=== PATIENT | female | born 1940 | race Caucasian/White ===

== ENCOUNTER 2021-08-22 12:08 | Inpatient (IN) | payer MEDICARE, MEDICAID ==
[~2021-08-22] VITALS: Ht 147.3 cm; Wt 63.6 kg
[~2021-08-22 12:08] MED LIST: AMLO5TAB16 PO; ATOR40TA PO; BISM-51 PO; CHOL200052 PO; LOPE-190 PO; METO5TAB98 PO; ONDA4TAB6 PO; PANT-47 PO; SITA50TA PO; atropine 0.1mg/ml 10ml syringe ONE; calcium chloride 100 MG/1 ML inj IV ONE; diphenhydrAMINE 50 mg/ml inj ONE; epiNEPHrine 0.1mg/ml 10ml syringe ONE; etomidate 2mg/ml inj. ONE; rocuronium 10mg/ml inj IV ONE; sodium bicarbonate (8.4%) 1 mEq/ml syringe ONE
[2021-08-22 13:30] LABS: BASOPHILS % (AUTO) 0.2 % (0-1); EOSINOPHILS % (AUTO) 0.2 % (0-6); HEMATOCRIT 37.6 % (35.0-45.0); HEMOGLOBIN 12.4 g/dl (12.0-16.0); LYMPHOCYTES # (AUTO) 0.6 X10'3 (1.1-4.8); MEAN CORPUSCULAR HEMOGLOBIN 30.6 PG (27.0-31.0); MEAN CORPUSCULAR VOLUME 92.9 FL (78-98); MEAN PLATELET VOLUME 8.9 FL (7.4-10.4); MONOCYTES # (AUTO) 0.2 X10'3 (0-0.9); MONOCYTES % (AUTO) 2.8 % (2-12); NEUTROPHILS # (AUTO) 6.3 X10'3 (1.8-7.7); NEUTROPHILS % (AUTO) 87.8 % (42-75); PLATELET COUNT 214 X10'3 (140-440); RED BLOOD COUNT 4.05 X10'6 (4.20-5.60); WHITE BLOOD COUNT 7.2 X10'3 (4.5-11.0)
[2021-08-22 13:37] LABS: APTT 25 SECONDS (22-32)
[2021-08-22 13:59] LABS: GLUCOSE 129 MG/DL (70-104); POTASSIUM 4.3 MMOL/L (3.5-5.1); SODIUM 140 MMOL/L (135-145)
[2021-08-22 14:00] LABS: ALANINE AMINOTRANSFERASE 18 U/L (12-78); ALBUMIN 3.4 G/DL (3.4-5.0); ALBUMIN/GLOBULIN RATIO 0.8 (1.1-1.5); ALKALINE PHOSPHATASE 77 IU/L (46-116); ANION GAP 9 (8-16); ASPARTATE AMINO TRANSFERASE 14 U/L (10-37); BILIRUBIN,TOTAL 0.3 MG/DL (0.1-1.0); BLOOD UREA NITROGEN 32 MG/DL (7-18); BUN/CREATININE RATIO 19.5 (6.6-38.0); CALCIUM 9.2 MG/DL (8.5-10.1); CHLORIDE 104 MMOL/L (99-107); CREATININE 1.64 MG/DL (0.40-0.90); TOTAL CARBON DIOXIDE 26.9 MMOL/L (24-32); TOTAL PROTEIN 7.5 G/DL (6.4-8.2); eGFR 30 ML/MIN
[2021-08-22] MEDS ORDERED: heparin 10,000 units/1 ML INJ IV PRN ×2 (14:25→14:50)
[2021-08-22] MEDS ORDERED: heparin 25,000 UNIT/250ml bag 250 ML IV SCH (14:25)
[2021-08-22] MEDS ORDERED: ondansetron/PF 4mg/2ml inj IV ONE (14:50)
[2021-08-22] MEDS ORDERED: morphine 2 MG/ML inj. syringe IV ONE (14:50)
[2021-08-22] MEDS ORDERED: heparin 10,000 units/1 ML INJ IV ONE (14:50)
[2021-08-22] MEDS ORDERED: normal saline 1000ml 1,000 ML IV ONE (14:50)
[2021-08-22] MEDS ORDERED: normal saline 1000ML IV soln IVB ONE (14:50)
[2021-08-22] MEDS: heparin 25,000 UNIT/250ml bag 250 ML IV SCH (15:03)
[2021-08-22] MEDS ORDERED: morphine 4 MG/ML inj SYRINge IV PRN ×2 (15:10→20:50)
[2021-08-22] MEDS ORDERED: magnesium hydroxide 30ml (MOM) UD suspension PO PRN (15:10)
[2021-08-22] MEDS ORDERED: normal saline 1000ml 1,000 ML IV SCH (15:10)
[2021-08-22] MEDS ORDERED: albuterol 2.5 MG/3 ML nebule NEB PRN (15:10)
[2021-08-22] MEDS ORDERED: acetaminophen 325mg tablet PO PRN (15:10)
[2021-08-22] MEDS ORDERED: heparin 1,000 UNITS/NS 500ml 500 ML ONE (16:34)
[2021-08-22] MEDS ORDERED: iohexol 300mg/ml 100ml inj. ONE ×3 (16:35→17:22)
[2021-08-22] MEDS ORDERED: iohexol 300 MG/1 ML 50ml polymer ONE ×2 (16:35→21:33)
[2021-08-22] MEDS ORDERED: ondansetron/PF 4mg/2ml inj ONE (17:06)
[2021-08-22] MEDS ORDERED: fentaNYL/PF 50MCG/1 ML 2ML syringe ONE ×3 (17:16→21:11)
[2021-08-22] MEDS ORDERED: heparin 10,000 units/1 ML INJ ONE (17:44)
[2021-08-22] MEDS ORDERED: LIDOcaine 1% (10mg/ml) 2ml vial ONE (17:48)
[2021-08-22] MEDS ORDERED: VANCOMYCIN 1GM/200ML IVPB 200 ML IV ONE (18:20)
[2021-08-22] MEDS ORDERED: midazolam 1 mg/ML 2ml injection ONE (18:27)
[2021-08-22] MEDS ORDERED: rocuronium 10mg/ml inj IV ONE (18:28)
[2021-08-22] MEDS ORDERED: propofol inj 20 ML IV ONE (18:28)
[2021-08-22] MEDS ORDERED: vancomycin/NS 1 GM ADD-VANTAGE 250 ML IV ONE (18:30)
[2021-08-22] MEDS ORDERED: levoFLOXACIN-Levaquin 500mg/D5 100 ML IV ONE (19:19)
[2021-08-22] MEDS ORDERED: ondansetron/PF 4mg/2ml inj IV PRN (20:50)
[2021-08-22] MEDS ORDERED: meperidine/PF 25mg/ml syringe IV PRN ×3 (20:50)
[2021-08-22] MEDS ORDERED: ringers solution, lacted 1,000 ML IV SCH (20:50)
[2021-08-22] MEDS ORDERED: morphine 2 MG/ML inj. syringe IV PRN (20:50)
[2021-08-22] MEDS ORDERED: proCHLORperazine 10 MG/2 ml inj IV PRN (20:50)
[2021-08-22] MEDS ORDERED: albumin (Human) 5% 250ml 250 ML IV ONE ×2 (21:03→23:28)
[2021-08-23] VITALS (34 sets, daily range): BP systolic 77–142; BP diastolic 48–69
[2021-08-23] MEDS ORDERED: HYDROmorphone inj. 0.5 MG/0.5 ML DISP.SYRIN IV PRN (00:30)
[2021-08-23] MEDS: ondansetron/PF 4mg/2ml inj IV PRN ×3 (00:53→20:02)
[2021-08-23] MEDS: dextrose 5%-lactated ringers 1,000 ML IV SCH ×3 (01:09→21:05)
[2021-08-23 01:46] LABS: APTT 77 SECONDS (22-32)
[2021-08-23] MEDS: heparin 25,000 UNIT/250ml bag 250 ML IV SCH ×2 (02:02→22:19)
[2021-08-23 02:38] LABS: BASOPHILS % (AUTO) 0.1 % (0-1); EOSINOPHILS # (AUTO) 0.1 X10'3 (0-0.9); EOSINOPHILS % (AUTO) 0.3 % (0-6); HEMATOCRIT 25.1 % (35.0-45.0); HEMOGLOBIN 8.1 g/dl (12.0-16.0); LYMPHOCYTES # (AUTO) 1.3 X10'3 (1.1-4.8); LYMPHOCYTES % (AUTO) 6.5 % (21-51); MEAN CORPUSCULAR HEMOGLOBIN 30.2 PG (27.0-31.0); MEAN CORPUSCULAR HGB CONC 32.4 g/dL (33.0-36.5); MEAN CORPUSCULAR VOLUME 93.3 FL (78-98); MEAN PLATELET VOLUME 9.2 FL (7.4-10.4); NEUTROPHILS # (AUTO) 17.7 X10'3 (1.8-7.7); NEUTROPHILS % (AUTO) 88.1 % (42-75); PLATELET COUNT 241 X10'3 (140-440); RED BLOOD COUNT 2.69 X10'6 (4.20-5.60); RED CELL DISTRIBUTION WIDTH 13.8 % (11.5-14.5); WHITE BLOOD COUNT 20.1 X10'3 (4.5-11.0)
[2021-08-23 02:45] LABS: APTT 41 SECONDS (22-32)
[2021-08-23 02:46] LABS: ALANINE AMINOTRANSFERASE 12 U/L (12-78); ALBUMIN 2.8 G/DL (3.4-5.0); ALKALINE PHOSPHATASE 44 IU/L (46-116); ANION GAP 7 (8-16); ASPARTATE AMINO TRANSFERASE 13 U/L (10-37); BILIRUBIN,TOTAL 0.3 MG/DL (0.1-1.0); BLOOD UREA NITROGEN 29 MG/DL (7-18); CALCIUM 7.7 MG/DL (8.5-10.1); CHLORIDE 110 MMOL/L (99-107); CREATININE 1.53 MG/DL (0.40-0.90); GLUCOSE 190 MG/DL (70-104); MAGNESIUM 1.8 MG/DL (1.5-2.4); PHOSPHORUS 4.9 MG/DL (2.3-4.5); POTASSIUM 3.8 MMOL/L (3.5-5.1); SODIUM 143 MMOL/L (135-145); TOTAL PROTEIN 5.5 G/DL (6.4-8.2); eGFR 32 ML/MIN
[2021-08-23] MEDS: albuterol 2.5 MG/3 ML nebule NEB SCH ×4 (07:00→23:39)
[2021-08-23] MEDS ORDERED: levoFLOXACIN-Levaquin 500mg/D5 100 ML IV SCH ×2 (08:00)
[2021-08-23] MEDS ORDERED: albumin (Human) 5% 250ml 250 ML IV ONE ×3 (10:35→17:00)
[2021-08-23] MEDS ORDERED: albumin (human) 25% 100 ML IV solution IV ONE (13:45)
[2021-08-23] MEDS ORDERED: NORepinephrine 8mg/ 250ml NS 250 ML IV SCH (13:45)
[2021-08-23 13:48] LABS: BASOPHILS % (AUTO) 0.2 % (0-1); EOSINOPHILS % (AUTO) 0 % (0-6); LYMPHOCYTES % (AUTO) 10.3 % (21-51); MEAN CORPUSCULAR HEMOGLOBIN 30.9 PG (27.0-31.0); MEAN CORPUSCULAR HGB CONC 33.2 g/dL (33.0-36.5); MEAN CORPUSCULAR VOLUME 92.9 FL (78-98); MEAN PLATELET VOLUME 8.9 FL (7.4-10.4); MONOCYTES # (AUTO) 0.6 X10'3 (0-0.9); MONOCYTES % (AUTO) 6.8 % (2-12); NEUTROPHILS # (AUTO) 7.8 X10'3 (1.8-7.7); NEUTROPHILS % (AUTO) 82.7 % (42-75); PLATELET COUNT 230 X10'3 (140-440); RED BLOOD COUNT 2.18 X10'6 (4.20-5.60); RED CELL DISTRIBUTION WIDTH 13.6 % (11.5-14.5); WHITE BLOOD COUNT 9.4 X10'3 (4.5-11.0)
[2021-08-23] MEDS ORDERED: NORepinephrine 8mg/ 250ml NS 250 ML IV ONE (13:50)
[2021-08-23] MEDS ORDERED: vancomycin/NS 1 GM ADD-VANTAGE 250 ML IV PRN (14:05)
[2021-08-23] MEDS ORDERED: vancomycin/NS 1 GM ADD-VANTAGE 250 ML X 1 DOSE IV ONE (14:05)
[2021-08-23 14:25] LABS: HEMATOCRIT 20.3 % (35.0-45.0); HEMOGLOBIN 6.7 g/dl (12.0-16.0)
[2021-08-23 14:54] LABS: CLARITY,URINE CLOUDY (Clear); COLOR,URINE YELLOW (Yellow); GLUCOSE, URINE NEGATIVE (Neg); KETONES,URINE NEGATIVE (Neg); LEUKOCYTE ESTERASE ,URINE SMALL (Neg); NITRITES, URINE NEGATIVE (Neg); OCCULT BLOOD,URINE LARGE (Neg); PH,URINE 5.5 (4.8-8.0); PROTEIN,URINE NEGATIVE (Neg); UROBILINOGEN,URINE 0.2 E.U/dL (0.2-1.0)
[2021-08-23 14:59] LABS: UA COLLECTION TYPE OTHER
[2021-08-23 15:01] LABS: BACTERIA,URINE 3+ /HPF (Neg); MUCUS STRANDS FEW /LPF (Neg); RBC,URINE 20-50 /HPF (0-2); SQUAMOUS EPITHELIAL CELL,UR MANY /LPF (FEW); WBC,URINE 50-100 /HPF (0-4)
[2021-08-23] MEDS: metoclopramide 5 mg/ml inj IV SCH ×2 (15:18→20:00)
[2021-08-23] MEDS ORDERED: normal saline 1000ml 1,000 ML IV ONE (17:00)
[2021-08-23] MEDS ORDERED: MULT-1085 PO (18:41)
[2021-08-23] MEDS: morphine 2 MG/ML inj. syringe IV PRN (20:02)
--- NOTE | 2021-08-23 21:45 | NUR ---
Heparin gtt off since 1400; PTT drawn at 2029 w/PTT results-34; Dr. Colon notified; ordered heparin restarted per protocol with bolus; MD aware that DP pulse on R faint w/doppler and slightly cool; received new orders for PTT; keep >75, <120.
[2021-08-23 21:54] LABS: BASOPHILS % (AUTO) 0.1 % (0-1); EOSINOPHILS % (AUTO) 0 % (0-6); HEMATOCRIT 27.3 % (35.0-45.0); HEMOGLOBIN 9.1 g/dl (12.0-16.0); LYMPHOCYTES # (AUTO) 1.1 X10'3 (1.1-4.8); LYMPHOCYTES % (AUTO) 9.2 % (21-51); MEAN CORPUSCULAR HEMOGLOBIN 31.3 PG (27.0-31.0); MEAN CORPUSCULAR HGB CONC 33.2 g/dL (33.0-36.5); MEAN CORPUSCULAR VOLUME 94.4 FL (78-98); MEAN PLATELET VOLUME 9.6 FL (7.4-10.4); MONOCYTES # (AUTO) 0.8 X10'3 (0-0.9); MONOCYTES % (AUTO) 6.7 % (2-12); NEUTROPHILS # (AUTO) 10.3 X10'3 (1.8-7.7); PLATELET COUNT 175 X10'3 (140-440); RED CELL DISTRIBUTION WIDTH 14.4 % (11.5-14.5); WHITE BLOOD COUNT 12.3 X10'3 (4.5-11.0)
[2021-08-24] VITALS (24 sets, daily range): BP systolic 88–107; BP diastolic 42–62
[2021-08-24] MEDS: morphine 2 MG/ML inj. syringe IV PRN ×3 (02:48→15:53)
[2021-08-24] MEDS: metoclopramide 5 mg/ml inj IV SCH ×4 (02:49→20:57)
[2021-08-24 02:57] LABS: BASOPHILS % (AUTO) 0 % (0-1); EOSINOPHILS % (AUTO) 0 % (0-6); HEMATOCRIT 28.2 % (35.0-45.0); HEMOGLOBIN 9.3 g/dl (12.0-16.0); LYMPHOCYTES # (AUTO) 1.1 X10'3 (1.1-4.8); LYMPHOCYTES % (AUTO) 9.7 % (21-51); MEAN CORPUSCULAR HEMOGLOBIN 30.8 PG (27.0-31.0); MEAN CORPUSCULAR HGB CONC 32.9 g/dL (33.0-36.5); MEAN CORPUSCULAR VOLUME 93.7 FL (78-98); MEAN PLATELET VOLUME 9.2 FL (7.4-10.4); MONOCYTES # (AUTO) 0.8 X10'3 (0-0.9); MONOCYTES % (AUTO) 7.1 % (2-12); NEUTROPHILS # (AUTO) 9.5 X10'3 (1.8-7.7); NEUTROPHILS % (AUTO) 83.2 % (42-75); PLATELET COUNT 174 X10'3 (140-440); RED BLOOD COUNT 3.01 X10'6 (4.20-5.60); RED CELL DISTRIBUTION WIDTH 14.5 % (11.5-14.5); WHITE BLOOD COUNT 11.5 X10'3 (4.5-11.0)
[2021-08-24] MEDS: VANCOMYCIN LEVEL IV SCH (03:00)
[2021-08-24 03:16] LABS: ALANINE AMINOTRANSFERASE 55 U/L (12-78); ALBUMIN 3.3 G/DL (3.4-5.0); ALBUMIN/GLOBULIN RATIO 1.7 (1.1-1.5); ALKALINE PHOSPHATASE 84 IU/L (46-116); ANION GAP 11 (8-16); ASPARTATE AMINO TRANSFERASE 201 U/L (10-37); BILIRUBIN,TOTAL 0.6 MG/DL (0.1-1.0); BLOOD UREA NITROGEN 30 MG/DL (7-18); BUN/CREATININE RATIO 15.4 (6.6-38.0); CHLORIDE 110 MMOL/L (99-107); CREATININE 1.95 MG/DL (0.40-0.90); GLUCOSE 218 MG/DL (70-104); MAGNESIUM 1.7 MG/DL (1.5-2.4); PHOSPHORUS 4.4 MG/DL (2.3-4.5); POTASSIUM 4.3 MMOL/L (3.5-5.1); SODIUM 143 MMOL/L (135-145); TOTAL PROTEIN 5.2 G/DL (6.4-8.2); eGFR 25 ML/MIN
--- NOTE | 2021-08-24 05:54 | NUR ---
09/23/22 ptt value 34 at 2040 hrs. Heparin restarted per MD. see notes for parameters. 09/24/21 ptt was drawn with am labs, director of cath lab advised that it was still pending because it might be high. 2 more samples where sent and still unable to get value. Orders given to continue infusing and repeat ptt until value is obtained.
[2021-08-24] MEDS: dextrose 5%-lactated ringers 1,000 ML IV SCH ×2 (07:05→22:00)
[2021-08-24] MEDS: levoFLOXACIN-Levaquin 250mg/D5 50 ML IV SCH (07:54)
[2021-08-24] MEDS: albuterol 2.5 MG/3 ML nebule NEB SCH ×4 (08:01→19:00)
--- NOTE | 2021-08-24 08:20 | NUR ---
0820 notified of pt's PTT (137), T/O order received to decrease to 800 units/hr (8)
[2021-08-24] MEDS: heparin 25,000 UNIT/250ml bag 250 ML IV SCH (09:56)
--- NOTE | 2021-08-24 11:15 | NUR ---
V/O received from MD Reyes bolus pt 1liter NS due to decreased cvp.
[2021-08-24] MEDS: ondansetron/PF 4mg/2ml inj IV PRN (12:20)
[2021-08-24 13:47] LABS: APTT 75 SECONDS (22-32)
--- NOTE | 2021-08-24 15:10 | NUR ---
V/O received from MD Reyes bolus pt again with 1liter NS due to decreased BP
[2021-08-24] MEDS ORDERED: albumin (Human) 5% 250ml 250 ML IV ONE ×2 (16:40→19:00)
[2021-08-24 20:00] LABS: APTT 67 SECONDS (22-32)
[2021-08-24] MEDS ORDERED: enoxaparin 40mg/0.4ml syringe SUBCUT SCH (20:00)
--- NOTE | 2021-08-24 20:11 | NUR ---
PTT 67 sec, Dr. Colon notified. Orders given to increase Heparin infusion to 900 u/hr.
[2021-08-24] MEDS ORDERED: furosemide inj 100 MG in normal saline 100ml IV soln 90 ML IV SCH (20:55)
[2021-08-24] MEDS: lactobacillus rhamnosus 10,000 MMU CELLS/CAPSULE PO SCH (20:57)
--- NOTE | 2021-08-24 21:00 | NUR ---
Pt with decrease UOP, Dr. Colon at bedside & was notified of decrease UOP.
[2021-08-24] MEDS: acetaminophen 325mg tablet PO PRN (21:47)
[2021-08-25] VITALS (23 sets, daily range): BP systolic 88–112; BP diastolic 48–64
[2021-08-25 02:55] LABS: BASOPHILS % (AUTO) 0.1 % (0-1); EOSINOPHILS % (AUTO) 0 % (0-6); HEMATOCRIT 25.6 % (35.0-45.0); HEMOGLOBIN 8.5 g/dl (12.0-16.0); LYMPHOCYTES # (AUTO) 1.2 X10'3 (1.1-4.8); LYMPHOCYTES % (AUTO) 9.1 % (21-51); MEAN CORPUSCULAR HEMOGLOBIN 31.2 PG (27.0-31.0); MEAN CORPUSCULAR VOLUME 94.5 FL (78-98); MEAN PLATELET VOLUME 9.8 FL (7.4-10.4); MONOCYTES % (AUTO) 7.9 % (2-12); NEUTROPHILS # (AUTO) 10.6 X10'3 (1.8-7.7); NEUTROPHILS % (AUTO) 82.9 % (42-75); PLATELET COUNT 158 X10'3 (140-440); RED BLOOD COUNT 2.71 X10'6 (4.20-5.60); RED CELL DISTRIBUTION WIDTH 14.9 % (11.5-14.5); WHITE BLOOD COUNT 12.7 X10'3 (4.5-11.0)
[2021-08-25] MEDS: metoclopramide 5 mg/ml inj IV SCH ×4 (02:57→22:13)
[2021-08-25] MEDS: VANCOMYCIN LEVEL IV SCH (03:00)
[2021-08-25] MEDS: dextrose 5%-lactated ringers 1,000 ML IV SCH ×4 (03:05→23:05)
[2021-08-25 03:18] LABS: ALANINE AMINOTRANSFERASE 130 U/L (12-78); ALBUMIN 2.8 G/DL (3.4-5.0); ALBUMIN/GLOBULIN RATIO 1.3 (1.1-1.5); ALKALINE PHOSPHATASE 68 IU/L (46-116); ANION GAP 12 (8-16); APTT 82 SECONDS (22-32); ASPARTATE AMINO TRANSFERASE 217 U/L (10-37); BILIRUBIN,TOTAL 0.4 MG/DL (0.1-1.0); BLOOD UREA NITROGEN 33 MG/DL (7-18); BUN/CREATININE RATIO 16.9 (6.6-38.0); CALCIUM 7.1 MG/DL (8.5-10.1); CHLORIDE 110 MMOL/L (99-107); CREATININE 1.95 MG/DL (0.40-0.90); GLUCOSE 184 MG/DL (70-104); MAGNESIUM 1.5 MG/DL (1.5-2.4); PHOSPHORUS 3.5 MG/DL (2.3-4.5); SODIUM 142 MMOL/L (135-145); TOTAL PROTEIN 4.9 G/DL (6.4-8.2); VANCOMYCIN,RANDOM 9.5 UG/ML; eGFR 25 ML/MIN
--- NOTE | 2021-08-25 06:47 | NUR ---
Received report from JUAN Oh
[2021-08-25] MEDS: albuterol 2.5 MG/3 ML nebule NEB SCH ×4 (07:38→19:55)
[2021-08-25] MEDS: levoFLOXACIN-Levaquin 250mg/D5 50 ML IV SCH (08:29)
[2021-08-25] MEDS: lactobacillus rhamnosus 10,000 MMU CELLS/CAPSULE PO SCH ×2 (08:30→22:09)
[2021-08-25 08:56] LABS: APTT 87 SECONDS (22-32)
[2021-08-25] MEDS ORDERED: vancomycin/NS 1 GM ADD-VANTAGE 250 ML IV ONE (11:00)
--- NOTE | 2021-08-25 11:36 | NUR ---
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 Pt currently on Clear liquid diet w/ 0% intake of meals. MD browning w/ advancing to Regular diet. Also receiving D5LR at 100ml/hr providing 408kcals/day. No BM documented though receiving routine Reglan. Limited nutrition interventions at this time given current diet order. Will continue to monitor. Recs: 1. Advance to Regular diet as tolerated 2. Monitor need for additional protein 3. Routine bowel care 4. Scaled wts Addendum: 08/25/21 at [address] Amended: Links added.
[2021-08-25] MEDS: pantoprazole 40MG/NS 100ML BAG 100 ML IV SCH (12:26)
[2021-08-25 14:42] LABS: APTT 81 SECONDS (22-32)
[2021-08-25] MEDS: heparin 25,000 UNIT/250ml bag 250 ML IV SCH (15:05)
[2021-08-25 21:01] LABS: APTT 49 SECONDS (22-32)
[2021-08-25] MEDS ORDERED: heparin 10,000 units/1 ML INJ IV ONE (22:00)
--- NOTE | 2021-08-25 22:00 | NUR ---
PTT 49 sec, Dr. Colon notified. New order received to give 1000 units bolus of heparin now & increase rate to 1000 u/hr.
[2021-08-25] MEDS: acetaminophen 325mg tablet PO PRN (22:13)
[2021-08-26] VITALS (27 sets, daily range): BP systolic 84–170; BP diastolic 36–89
[2021-08-26] MEDS: metoclopramide 5 mg/ml inj IV SCH ×3 (02:00→14:00)
[2021-08-26] MEDS ORDERED: amiodarone 150mg/dext, iso-os 100 ML IV ONE ×2 (02:30→02:32)
--- NOTE | 2021-08-26 02:30 | NUR ---
Pt rhythm is AF, HR 120's. Pt shortness of breath, with bilateral wheezing. Dr. Colon notified of increased heart rate and status changes. New order received to start Amiodarone bolus infusion. Respiratory Therapist paged for prn breathing treatmen
[2021-08-26] MEDS: VANCOMYCIN LEVEL IV SCH (03:00)
[2021-08-26] MEDS: amiodarone/D5 360MG/200ML BAG 200 ML IV SCH ×3 (03:10→14:30)
[2021-08-26] MEDS: morphine 2 MG/ML inj. syringe IV PRN (03:47)
[2021-08-26 03:49] LABS: BASOPHILS # (AUTO) 0.2 X10'3 (0-0.2); BASOPHILS % (AUTO) 0.9 % (0-1); EOSINOPHILS % (AUTO) 0 % (0-6); HEMATOCRIT 25.2 % (35.0-45.0); LYMPHOCYTES # (AUTO) 4.1 X10'3 (1.1-4.8); LYMPHOCYTES % (AUTO) 22.1 % (21-51); MEAN CORPUSCULAR HEMOGLOBIN 30.8 PG (27.0-31.0); MEAN CORPUSCULAR VOLUME 96.4 FL (78-98); MEAN PLATELET VOLUME 9.8 FL (7.4-10.4); MONOCYTES # (AUTO) 1.6 X10'3 (0-0.9); MONOCYTES % (AUTO) 8.4 % (2-12); NEUTROPHILS # (AUTO) 12.7 X10'3 (1.8-7.7); NEUTROPHILS % (AUTO) 68.6 % (42-75); PLATELET COUNT 231 X10'3 (140-440); RED BLOOD COUNT 2.61 X10'6 (4.20-5.60); RED CELL DISTRIBUTION WIDTH 15.3 % (11.5-14.5); WHITE BLOOD COUNT 18.5 X10'3 (4.5-11.0)
[2021-08-26 04:06] LABS: ALANINE AMINOTRANSFERASE 124 U/L (12-78); ALBUMIN 2.4 G/DL (3.4-5.0); ALBUMIN/GLOBULIN RATIO 0.9 (1.1-1.5); ALKALINE PHOSPHATASE 69 IU/L (46-116); ANION GAP 15 (8-16); ASPARTATE AMINO TRANSFERASE 104 U/L (10-37); BILIRUBIN,TOTAL 0.5 MG/DL (0.1-1.0); BLOOD UREA NITROGEN 34 MG/DL (7-18); BUN/CREATININE RATIO 16.3 (6.6-38.0); CALCIUM 6.8 MG/DL (8.5-10.1); CHLORIDE 110 MMOL/L (99-107); CREATININE 2.09 MG/DL (0.40-0.90); GLUCOSE 332 MG/DL (70-104); MAGNESIUM 1.6 MG/DL (1.5-2.4); SODIUM 141 MMOL/L (135-145); TOTAL CARBON DIOXIDE 16.4 MMOL/L (24-32); VANCOMYCIN,RANDOM 17.4 UG/ML; eGFR 23 ML/MIN
[2021-08-26 04:19] LABS: APTT 109 SECONDS (22-32)
--- NOTE | 2021-08-26 05:05 | NUR ---
Pt c/o not being able to "feel" her right lower extremity. Continuous very anxious and dyspnea. Doppler pulses strong and weak palpable pulses without change from prior assessments. Dr. Colon notified. New order received for Arterial doppler studies.
[2021-08-26 05:11] LABS: NUCLEATED RED BLOOD CELLS 1 /100WBC (0-0); PLATELET ESTIMATE NORMAL; TOTAL CELLS COUNTED 100
[2021-08-26 05:12] LABS: ANISOCYTOSIS FEW; BURR CELLS 2+; LARGE PLATELETS FEW; POLYCHROMASIA FEW
[2021-08-26 06:05] LABS: ABG BASE EXCESS -17.9 mmol/L (-2.0-2.0); ABG HCO3 9.2 mmol/L (22.0-26.0); ABG OXYGEN SATURATION 86.6 % (94-97); ABG PCO2 (T) 23.5 mmHg (32.0-45.0); ABG PO2 (T) 54.3 mmHg (75.0-100.0); FCOHb 0.3 % (0.0-3.9); FLOW 5 L/min; FMetHb 0.2 % (0.0-1.5); FO2Hb 86.2 % (94-97); PATIENT TEMPERATURE 34.5; TOTAL HEMOGLOBIN 9.1 G/dl (12.0-16.0)
--- NOTE | 2021-08-26 06:10 | NUR ---
ABG's called to Dr. Colon, no new orders given.
[2021-08-26] MEDS ORDERED: sodium bicarbonate (8.4%) 1 mEq/ml syringe IV ONE (06:15)
[2021-08-26] MEDS: heparin 25,000 UNIT/250ml bag 250 ML IV SCH (06:18)
--- NOTE | 2021-08-26 06:48 | NUR ---
0615 [facility]'s report called to Dr. Smiley. New order received for [address] Smiley assessed pt on [facility].
[2021-08-26] MEDS ORDERED: sodium bicarbonate (8.4%) inj. 150 MEQ in dextrose 5%-water 1,000 ML IV SCH ×2 (07:40→07:45)
[2021-08-26 07:47] LABS: ABG BASE EXCESS -13.5 mmol/L (-2.0-2.0); ABG HCO3 12.6 mmol/L (22.0-26.0); ABG OXYGEN SATURATION 96.3 % (94-97); ABG PCO2 (T) 25.9 mmHg (32.0-45.0); ABG PO2 (T) 82.6 mmHg (75.0-100.0); ALLEN'S TEST POSITIVE; FCOHb 0.3 % (0.0-3.9); FLOW 10 L/min; FMetHb 0.2 % (0.0-1.5); FO2Hb 95.8 % (94-97); PATIENT TEMPERATURE 33.5; TOTAL HEMOGLOBIN 8.9 G/dl (12.0-16.0)
[2021-08-26] MEDS: albuterol 2.5 MG/3 ML nebule NEB SCH ×2 (07:53→11:00)
[2021-08-26] MEDS: pantoprazole 40MG/NS 100ML BAG 100 ML IV SCH (08:00)
[2021-08-26] MEDS: lactobacillus rhamnosus 10,000 MMU CELLS/CAPSULE PO SCH (08:00)
[2021-08-26 08:31] LABS: CREATINE KINASE 240 U/L (26-192)
[2021-08-26] MEDS ORDERED: albumin (human) 25% 100 ML IV solution IV ONE (08:45)
[2021-08-26] MEDS ORDERED: NORepinephrine 8mg/ 250ml NS 250 ML IV ONE (08:52)
[2021-08-26] MEDS ORDERED: magnesium 4gm in 100ml NS 100 ML IV PRN (09:20)
[2021-08-26] MEDS ORDERED: sodium phosphate inj. 30 MMOL in normal saline 250ml IV soln 250 ML IV PRN (09:20)
[2021-08-26] MEDS ORDERED: Duosol 4K/3 Ca (w/calcium) 5,000 ML HE SCH (09:20)
[2021-08-26] MEDS ORDERED: potassium Cl 40MEQ/250ML bag 270 ML IV PRN (09:20)
[2021-08-26] MEDS ORDERED: calcium chloride inj. 1,000 MG in normal saline 100ml IV soln 100 ML IV PRN (09:20)
[2021-08-26 10:34] LABS: BASOPHILS % (AUTO) 0.1 % (0-1); HEMOGLOBIN 7.5 g/dl (12.0-16.0); LYMPHOCYTES # (AUTO) 1.2 X10'3 (1.1-4.8); LYMPHOCYTES % (AUTO) 6.4 % (21-51); MONOCYTES # (AUTO) 1.4 X10'3 (0-0.9)
[2021-08-26 10:36] LABS: EOSINOPHILS % (AUTO) 0 % (0-6); HEMATOCRIT 23.6 % (35.0-45.0); MEAN CORPUSCULAR HEMOGLOBIN 30.6 PG (27.0-31.0); MEAN CORPUSCULAR HGB CONC 31.7 g/dL (33.0-36.5); MEAN CORPUSCULAR VOLUME 96.6 FL (78-98); MEAN PLATELET VOLUME 9.2 FL (7.4-10.4); MONOCYTES % (AUTO) 7.4 % (2-12); NEUTROPHILS # (AUTO) 16.1 X10'3 (1.8-7.7); NEUTROPHILS % (AUTO) 86.1 % (42-75); PLATELET COUNT 197 X10'3 (140-440); RED BLOOD COUNT 2.44 X10'6 (4.20-5.60); WHITE BLOOD COUNT 18.8 X10'3 (4.5-11.0)
[2021-08-26 10:54] LABS: ANION GAP 18 (8-16); BLOOD UREA NITROGEN 36 MG/DL (7-18); CHLORIDE 106 MMOL/L (99-107); CREATININE 2.12 MG/DL (0.40-0.90); GLUCOSE 211 MG/DL (70-104); MAGNESIUM 1.5 MG/DL (1.5-2.4); POTASSIUM 3.6 MMOL/L (3.5-5.1); SODIUM 142 MMOL/L (135-145); TOTAL CARBON DIOXIDE 18.5 MMOL/L (24-32); eGFR 22 ML/MIN
[2021-08-26] MEDS ORDERED: albumin (Human) 5% 250ml 250 ML IV ONE ×2 (10:55)
[2021-08-26] MEDS: Duosol 4K/3 Ca (w/calcium) 5,000 ML HE SCH ×3 (11:03→11:05)
[2021-08-26 11:14] LABS: APTT > 139 SECONDS (22-32)
[2021-08-26 11:18] LABS: ANISOCYTOSIS 2+; LARGE PLATELETS FEW; PLATELET ESTIMATE NORMAL; POLYCHROMASIA 1+
[2021-08-26 11:51] LABS: MEAN PLATELET VOLUME 9.2 FL (7.4-10.4)
[2021-08-26 11:54] LABS: BASOPHILS % (AUTO) 0.2 % (0-1); EOSINOPHILS % (AUTO) 0.1 % (0-6); LYMPHOCYTES % (AUTO) 7.6 % (21-51); MEAN CORPUSCULAR HEMOGLOBIN 30.8 PG (27.0-31.0); MEAN CORPUSCULAR VOLUME 96.2 FL (78-98); MONOCYTES # (AUTO) 0.8 X10'3 (0-0.9); MONOCYTES % (AUTO) 5.5 % (2-12); NEUTROPHILS # (AUTO) 11.9 X10'3 (1.8-7.7); NEUTROPHILS % (AUTO) 86.6 % (42-75); PLATELET COUNT 108 X10'3 (140-440); RED BLOOD COUNT 2.12 X10'6 (4.20-5.60); RED CELL DISTRIBUTION WIDTH 15.5 % (11.5-14.5); WHITE BLOOD COUNT 13.8 X10'3 (4.5-11.0)
[2021-08-26 11:56] LABS: HEMATOCRIT 20.4 % (35.0-45.0); HEMOGLOBIN 6.5 g/dl (12.0-16.0)
[2021-08-26 12:05] LABS: ALBUMIN 3.4 G/DL (3.4-5.0); ANION GAP 18 (8-16); BLOOD UREA NITROGEN 32 MG/DL (7-18); BUN/CREATININE RATIO 16.6 (6.6-38.0); CHLORIDE 107 MMOL/L (99-107); CREATININE 1.93 MG/DL (0.40-0.90); GLUCOSE 175 MG/DL (70-104); MAGNESIUM 1.5 MG/DL (1.5-2.4); PHOSPHORUS 4.4 MG/DL (2.3-4.5); POTASSIUM 3.6 MMOL/L (3.5-5.1); SODIUM 144 MMOL/L (135-145); TOTAL CARBON DIOXIDE 18.6 MMOL/L (24-32); eGFR 25 ML/MIN
[2021-08-26] MEDS ORDERED: midazolam 100mg in NS 100ml 100 ML IV PRN (12:05)
[2021-08-26] MEDS ORDERED: FENTANYL-0.9 % NACL/PF 100 ML IV PRN ×2 (12:05→12:45)
[2021-08-26 12:16] LABS: PLATELET ESTIMATE DECREASED
[2021-08-26 12:17] LABS: LARGE PLATELETS FEW
[2021-08-26 12:18] LABS: ANISOCYTOSIS 2+; ELLIPTOCYTES FEW; POLYCHROMASIA 1+; TEAR DROP CELLS FEW
[2021-08-26] MEDS ORDERED: fentaNYL/PF 50MCG/1 ML 2ML syringe IV PRN (12:45)
[2021-08-26] MEDS ORDERED: midazolam 1 mg/ML 2ml injection IV PRN (12:45)
[2021-08-26 14:37] LABS: BASOPHILS % (AUTO) 0.1 % (0-1); EOSINOPHILS % (AUTO) 0 % (0-6); HEMATOCRIT 28.6 % (35.0-45.0)
[2021-08-26 14:38] LABS: HEMOGLOBIN 8.9 g/dl (12.0-16.0); LYMPHOCYTES # (AUTO) 1.4 X10'3 (1.1-4.8); LYMPHOCYTES % (AUTO) 5.8 % (21-51); MEAN CORPUSCULAR HEMOGLOBIN 29.8 PG (27.0-31.0); MEAN CORPUSCULAR HGB CONC 31.2 g/dL (33.0-36.5); MEAN CORPUSCULAR VOLUME 95.5 FL (78-98); MEAN PLATELET VOLUME 8.5 FL (7.4-10.4); MONOCYTES # (AUTO) 1.3 X10'3 (0-0.9); MONOCYTES % (AUTO) 5.7 % (2-12); NEUTROPHILS # (AUTO) 20.7 X10'3 (1.8-7.7); NEUTROPHILS % (AUTO) 88.4 % (42-75); PLATELET COUNT 94 X10'3 (140-440); RED CELL DISTRIBUTION WIDTH 16.2 % (11.5-14.5); WHITE BLOOD COUNT 23.4 X10'3 (4.5-11.0)
[2021-08-26 14:49] LABS: ALBUMIN 3.8 G/DL (3.4-5.0); ANION GAP 16 (8-16); BLOOD UREA NITROGEN 28 MG/DL (7-18); BUN/CREATININE RATIO 16.4 (6.6-38.0); CHLORIDE 105 MMOL/L (99-107); CREATININE 1.71 MG/DL (0.40-0.90); GLUCOSE 158 MG/DL (70-104); MAGNESIUM 1.7 MG/DL (1.5-2.4); PHOSPHORUS 5.1 MG/DL (2.3-4.5); POTASSIUM 4.2 MMOL/L (3.5-5.1); SODIUM 141 MMOL/L (135-145); TOTAL CARBON DIOXIDE 20.4 MMOL/L (24-32); eGFR 29 ML/MIN
[2021-08-26] MEDS ORDERED: meropenem inj 1 GM in normal saline 100ml IV soln 100 ML IV SCH (15:00)
[2021-08-26] MEDS ORDERED: albuterol 2.5 MG/3 ML nebule NEB SCH (15:00)
[2021-08-26] MEDS ORDERED: etomidate 2mg/ml inj. IV ONE (16:05)
[2021-08-26] MEDS ORDERED: rocuronium 10mg/ml inj IV ONE (16:05)
[2021-08-26 16:07] LABS: BASOPHILS % (AUTO) 0.1 % (0-1); EOSINOPHILS % (AUTO) 0 % (0-6); MEAN CORPUSCULAR HEMOGLOBIN 29.2 PG (27.0-31.0); MEAN PLATELET VOLUME 7.9 FL (7.4-10.4); NEUTROPHILS % (AUTO) 89.1 % (42-75); RED BLOOD COUNT 3.77 X10'6 (4.20-5.60)
[2021-08-26 16:09] LABS: HEMATOCRIT 34.7 % (35.0-45.0); LYMPHOCYTES # (AUTO) 1.2 X10'3 (1.1-4.8); LYMPHOCYTES % (AUTO) 5.2 % (21-51); MEAN CORPUSCULAR HGB CONC 31.7 g/dL (33.0-36.5); MONOCYTES # (AUTO) 1.3 X10'3 (0-0.9); MONOCYTES % (AUTO) 5.6 % (2-12); NEUTROPHILS # (AUTO) 21.1 X10'3 (1.8-7.7); PLATELET COUNT 80 X10'3 (140-440); WHITE BLOOD COUNT 23.7 X10'3 (4.5-11.0)
[2021-08-26 16:11] LABS: ABG BASE EXCESS -12.7 mmol/L (-2.0-2.0); ABG HCO3 15.4 mmol/L (22.0-26.0); ABG OXYGEN SATURATION 95.4 % (94-97); ABG PCO2 (T) 38.4 mmHg (32.0-45.0); ALLEN'S TEST POSITIVE; FCOHb 0.3 % (0.0-3.9); FMetHb 0.3 % (0.0-1.5); FO2Hb 94.8 % (94-97); RESPIRATORY RATE 12 b/min; TIDAL VOLUME 350 mL
[2021-08-26 16:30] LABS: ALBUMIN 3.8 G/DL (3.4-5.0); ANION GAP 16 (8-16); BLOOD UREA NITROGEN 26 MG/DL (7-18); BUN/CREATININE RATIO 16.5 (6.6-38.0); CHLORIDE 106 MMOL/L (99-107); CREATININE 1.58 MG/DL (0.40-0.90); GLUCOSE 132 MG/DL (70-104); MAGNESIUM 1.7 MG/DL (1.5-2.4); PHOSPHORUS 5.4 MG/DL (2.3-4.5); POTASSIUM 4.3 MMOL/L (3.5-5.1); SODIUM 140 MMOL/L (135-145); TOTAL CARBON DIOXIDE 18.2 MMOL/L (24-32); eGFR 31 ML/MIN
[2021-08-26] MEDS ORDERED: DOBUTamine-DoBUTrex 500mg/D5W 250 ML IV ONE (18:48)
[2021-08-26] MEDS ORDERED: DOBUTamine-DoBUTrex 500mg/D5W 250 ML IV SCH (18:50)
[2021-08-26 18:54] LABS: APTT > 139 SECONDS (22-32)
--- NOTE | 2021-08-26 19:31 | NUR ---
THE ELEVATOR MECHANIC WAS CALLED AND SPEEKING WITH THE ER DR. MOLLY ZAPATA
[2021-08-26 19:40] LABS: BASOPHILS # (AUTO) 0.1 X10'3 (0-0.2); HEMOGLOBIN 9.7 g/dl (12.0-16.0); MONOCYTES # (AUTO) 1.6 X10'3 (0-0.9)
[2021-08-26 19:42] LABS: BASOPHILS % (AUTO) 0.6 % (0-1); EOSINOPHILS % (AUTO) 0.2 % (0-6); HEMATOCRIT 30.8 % (35.0-45.0); LYMPHOCYTES # (AUTO) 3.2 X10'3 (1.1-4.8); LYMPHOCYTES % (AUTO) 13.5 % (21-51); MEAN CORPUSCULAR HEMOGLOBIN 29.5 PG (27.0-31.0); MEAN CORPUSCULAR HGB CONC 31.4 g/dL (33.0-36.5); MEAN CORPUSCULAR VOLUME 93.9 FL (78-98); MEAN PLATELET VOLUME 7.8 FL (7.4-10.4); MONOCYTES % (AUTO) 6.6 % (2-12); NEUTROPHILS # (AUTO) 18.9 X10'3 (1.8-7.7); NEUTROPHILS % (AUTO) 79.1 % (42-75); RED BLOOD COUNT 3.28 X10'6 (4.20-5.60); RED CELL DISTRIBUTION WIDTH 18.7 % (11.5-14.5); WHITE BLOOD COUNT 23.9 X10'3 (4.5-11.0)
[2021-08-26] MEDS ORDERED: NORepinephrine inj. 32 MG in normal saline 250ml IV soln 218 ML IV SCH (19:50)
[2021-08-26 20:02] LABS: PLATELET COUNT 43 X10'3 (140-440)
[2021-08-26 20:10] LABS: ALANINE AMINOTRANSFERASE 1289 U/L (12-78); ALBUMIN 2.7 G/DL (3.4-5.0); ALBUMIN/GLOBULIN RATIO 1.8 (1.1-1.5); ALKALINE PHOSPHATASE 89 IU/L (46-116); ANION GAP 14 (8-16); ASPARTATE AMINO TRANSFERASE 1956 U/L (10-37); BILIRUBIN,TOTAL 1.6 MG/DL (0.1-1.0); BLOOD UREA NITROGEN 24 MG/DL (7-18); CHLORIDE 110 MMOL/L (99-107); GLUCOSE 108 MG/DL (70-104); POTASSIUM 4.7 MMOL/L (3.5-5.1); SODIUM 142 MMOL/L (135-145); TOTAL CARBON DIOXIDE 17.6 MMOL/L (24-32); TOTAL PROTEIN 4.2 G/DL (6.4-8.2); eGFR 33 ML/MIN
--- NOTE | 2021-08-26 20:28 | NUR ---
Pt was on CVVH. Pt was hypotensive and bradycardic. Pt went bradycardic down into the 30 and 40s with EKG changes in the monitor. Dobutamine was increased as well as levo. Pulse was checked and no pulse was felt. CPR was initiated and code blue was called. Pt was emergently rinsed back from CVVH. Pulse returned at. Dobutamine and Levophed were increased to the highest rate. At approximately Pt lost pulse again. ACLS was then started again and a code was called. At 2019 code was stopped and no pulse was felt. Family was called and are on the way in. Addendum: 08/26/21 at 2200 by Brie Raymond RN Pt was on CVVH. Pt was hypotensive and bradycardic. Pt went bradycardic down into the 30 and 40s with EKG changes in the monitor. Dobutamine was increased as well as levo. Pulse was checked and no pulse was felt. CPR was initiated at approximately 1914, and code blue was called. Pt was emergently rinsed back from CVVH. Pulse returned at 192. Dobutamine and Levophed were increased to the highest rate. At approximately 1927 Pt lost pulse again. ACLS was then started again and a code blue was called. At 2019 code was stopped and no pulse was felt. Family was called and are on the way in.
[2021-08-26 20:31] LABS: NUCLEATED RED BLOOD CELLS 1 /100WBC (0-0); TOTAL CELLS COUNTED 100
[2021-08-26 20:32] LABS: ANISOCYTOSIS 2+; PLATELET ESTIMATE DECREASED
[2021-08-26 20:33] LABS: BURR CELLS 1+; POLYCHROMASIA FEW
[2021-08-26 20:34] LABS: ELLIPTOCYTES FEW; LARGE PLATELETS FEW
--- NOTE | 2021-08-26 20:40 | NUR ---
Fmmeserety is here at the bedside. Family is unsure of what mortuary they will be using. Will continue to follow.
--- NOTE | 2021-08-26 21:04 | NUR ---
Family chose [facility]. Will notify.
--- NOTE | 2021-08-26 21:25 | NUR ---
Have attempted to contact the [facility] at five times. First 2 screening questions are answered by pressing two. Then told to wait for the next available associate to assist. Line will ring two or three times then will go silent with no answer after about a minute. Called from other phones with same result. Will continue to attempt to contact.
--- NOTE | 2021-08-26 21:33 | NUR ---
Donor network contacted. Spoke with Dwight. Not suitable for donation and have released. Addendum: 08/26/21 at 2134 by Brie Raymond RN Devika
[2021-08-27] MEDS ORDERED: levoFLOXACIN-Levaquin 250mg/D5 50 ML IV SCH (08:00)
[2021-08-27] MEDS ORDERED: mineral oil/petrolatum ophthal oint EACHEYE SCH (14:00)
== END 2021-08-26 23:20 | DRG 252 ==
LOC: ER 12:10 → ED HOLD 15:16 → ICU 2S 19:44
PROVIDERS: ADMIT Surgery Surgical Critical Care; ATTEND Surgery Surgical Critical Care
PROC: B41G1ZZ Fluoroscopy of Left Lower Extremity Arteries using Low Osmolar Contrast (ICD-10-PCS; 2021-08-22)
PROC: 04WY0JZ Revision of Synthetic Substitute in Lower Artery, Open Approach (ICD-10-PCS; 2021-08-22)
PROC: 04CR0ZZ Extirpation of Matter from Right Posterior Tibial Artery, Open Approach (ICD-10-PCS; 2021-08-22)
PROC: 06BQ4ZZ Excision of Left Saphenous Vein, Percutaneous Endoscopic Approach (ICD-10-PCS; 2021-08-22)
PROC: 04UK07Z Supplement Right Femoral Artery with Autologous Tissue Substitute, Open Approach (ICD-10-PCS; 2021-08-22)
PROC: 041L0JH Bypass Left Femoral Artery to Right Femoral Artery with Synthetic Substitute, Open Approach (ICD-10-PCS; principal; 2021-08-22 18:24)
PROC: 30233N1 Transfusion of Nonautologous Red Blood Cells into Peripheral Vein, Percutaneous Approach (ICD-10-PCS; 2021-08-23)
PROC: 5A12012 Performance of Cardiac Output, Single, Manual (ICD-10-PCS; 2021-08-26)
PROC: 5A1935Z Respiratory Ventilation, Less than 24 Consecutive Hours (ICD-10-PCS; 2021-08-26)
PROC: 0BH17EZ Insertion of Endotracheal Airway into Trachea, Via Natural or Artificial Opening (ICD-10-PCS; 2021-08-26)
PROC: 5A1D90Z Performance of Urinary Filtration, Continuous, Greater than 18 hours Per Day (ICD-10-PCS; 2021-08-26)
DX: T82.898A Other specified complication of vascular prosthetic devices, implants and grafts, initial encounter (principal); A41.9 Sepsis, unspecified organism; I21.3 ST elevation (STEMI) myocardial infarction of unspecified site; J18.9 Pneumonia, unspecified organism; J96.01 Acute respiratory failure with hypoxia; J96.02 Acute respiratory failure with hypercapnia; R65.21 Severe sepsis with septic shock; N17.9 Acute kidney failure, unspecified; D62 Acute posthemorrhagic anemia; I13.0 Hypertensive heart and chronic kidney disease with heart failure and stage 1 through stage 4 chronic kidney disease, or unspecified chronic kidney disease; I50.20 Unspecified systolic (congestive) heart failure; I99.8 Other disorder of circulatory system; I46.9 Cardiac arrest, cause unspecified; I48.91 Unspecified atrial fibrillation; E11.22 Type 2 diabetes mellitus with diabetic chronic kidney disease; E11.51 Type 2 diabetes mellitus with diabetic peripheral angiopathy without gangrene; E78.5 Hyperlipidemia, unspecified; J43.9 Emphysema, unspecified; N18.2 Chronic kidney disease, stage 2 (mild); I72.4 Aneurysm of artery of lower extremity; R00.1 Bradycardia, unspecified; Z20.822 Contact with and (suspected) exposure to COVID-19; Y83.2 Surgical operation with anastomosis, bypass or graft as the cause of abnormal reaction of the patient, or of later complication, without mention of misadventure at the time of the procedure; G89.29 Other chronic pain; K57.90 Diverticulosis of intestine, part unspecified, without perforation or abscess without bleeding; M54.9 Dorsalgia, unspecified; Z86.718 Personal history of other venous thrombosis and embolism; Z87.442 Personal history of urinary calculi; Z87.891 Personal history of nicotine dependence; Z88.0 Allergy status to penicillin; Z88.2 Allergy status to sulfonamides; Z88.8 Allergy status to other drugs, medicaments and biological substances; Z79.899 Other long term (current) drug therapy; Y92.89 Other specified places as the place of occurrence of the external cause
CPT/HCPCS: 36160; 36415; 36430; 36600; 71045; 73590; 75625; 76770; 76937; 80053; 80069; 80202; 81001; 82330; 82550; 82803; 82948; 83605; 83735; 84100; 84484; 85007; 85008; 85018; 85025; 85610; 85730; 86885; 86900; 86901; 86920; 87040; 87081; 87088; 87635; 88304; 88305; 92950; 93005; 93306; 93926; 93931; 94002; 94640; 94760; 96361; 96374; 96375; 99291; A4215; A4618; A6258; A6455; A7000; C1757; C1758; C1760; C1768; C1769; C1894; C9113; C9803; E1594; G0378; J0171; J0282; J0461; J0780; J1200; J1250; J1644; J1650; J1940; J1956; J2185; J2250; J2270; J2405; J2704; J2765; J3010; J3370; J3490; J7030; J7040; J7070; J7120; J7121; P9016; P9045; P9047; Q9967